=== PATIENT | male | born 1965 | race Caucasian/White ===

== ENCOUNTER 2021-10-06 09:30 | Day surgery (SDC) | payer OTHER ==
[2021-10-06] MEDS ORDERED: LIDOCAINE HCL 2% 100 MG/5 ML IJ ONE (09:31)
[2021-10-06] MEDS ORDERED: DIPRIVAN 200 MG/20 ML IV ONE (10:58)
[2021-10-06] MEDS ORDERED: Lactated Ringers 1,000 ML IV ONE (12:26)
--- NOTE | 2021-10-06 12:35 | XRAY ---
Indication: Bilateral L4-S1 MBB. Intraoperative fluoroscopy provided for 14 seconds. Single digital spot image submitted for interpretation demonstrates posterior needle tips projecting over the expected left and right L4-S1 nerve roots. Correlate with intraoperative findings/report.
--- NOTE | 2021-10-06 12:38 | XRAY ---
14 seconds fluoroscopy time in surgery for bilateral L4-S1 MBB
== END 2021-10-06 11:19 | disposition home or self-care (01) ==
LOC: SDC-PAIN 09:30
PROVIDERS: ATTEND Psychiatry & Neurology Pain Medicine
DX: M47.816 Spondylosis without myelopathy or radiculopathy, lumbar region (principal); Z79.899 Other long term (current) drug therapy
CPT/HCPCS: 64493; 64494; 72020; 77002; J2704

== ENCOUNTER 2021-11-24 12:38 | Day surgery (SDC) | payer OTHER ==
[2021-11-24] MEDS ORDERED: Marcaine Mpf 0.5% Vial 30 Ml IJ ONE (12:39)
[2021-11-24] MEDS ORDERED: Depo-Medrol 40 MG/ML IM ONE (12:39)
[2021-11-24] MEDS ORDERED: Lactated Ringers 1,000 ML IV ONE (14:54)
[2021-11-24] MEDS ORDERED: DIPRIVAN 200 MG/20 ML IV ONE (15:05)
--- NOTE | 2021-11-24 17:21 | XRAY ---
14 seconds fluoroscopy time in surgery for bilateral L4-S1 MBB.
== END 2021-11-24 15:40 | disposition home or self-care (01) ==
LOC: SDC-PAIN 12:38
PROVIDERS: ATTEND Psychiatry & Neurology Pain Medicine
DX: M47.816 Spondylosis without myelopathy or radiculopathy, lumbar region (principal); Z79.899 Other long term (current) drug therapy
CPT/HCPCS: 64493; 64494; 72020; 77002; J1030; J2704

== ENCOUNTER 2023-07-26 15:41 | Day surgery (SDC) | payer OTHER ==
[2023-07-26] MEDS ORDERED: XYLOCAINE-MPF 1% 5ML SDV IJ ONE (15:42)
[2023-07-26] MEDS ORDERED: Depo-Medrol 40 MG/ML IM ONE (15:42)
[2023-07-26] MEDS ORDERED: BUPIVACAINE 0.5% VIAL IJ ONE (15:42)
--- NOTE | 2023-07-26 20:08 | XRAY ---
Indication: Left ankle injection. Intraoperative fluoroscopy provided for 12 seconds. Single digital spot images submitted for interpretation demonstrates anterior needle tip projecting over the left talotibial joint. Small amount of contrast injected for needle tip placement. Correlate with intraoperative findings/report.
--- NOTE | 2023-07-26 20:08 | XRAY ---
Indication: Right ankle injection. Intraoperative fluoroscopy provided for 9 seconds. Single digital spot images submitted for interpretation demonstrates anterior needle tip projecting over the right talotibial joint. Small amount of contrast injected for needle tip placement. Correlate with intraoperative findings/report.
--- NOTE | 2023-07-27 09:18 | XRAY ---
12 seconds of fluoroscopy was used in surgery for a left intra-articular knee injection.
--- NOTE | 2023-07-27 09:19 | XRAY ---
12 seconds of fluoroscopy was used in surgery for a right intra-articular ankle injection.
== END 2023-07-26 18:02 | disposition home or self-care (01) ==
LOC: SDC-PAIN 15:41
PROVIDERS: ATTEND Psychiatry & Neurology Pain Medicine
DX: M25.572 Pain in left ankle and joints of left foot (principal); M25.571 Pain in right ankle and joints of right foot
CPT/HCPCS: 20610; 73600; 77002; J1010; Q9966